=== PATIENT | male | born 1980 | race Caucasian/White ===

== ENCOUNTER 2024-05-23 08:06 | Day surgery (SDC) | payer BC, OTHER ==
[2024-05-20 14:45] VITALS: BMI 39.6
[2024-05-23] MEDS ORDERED: PROPOFOL 80 ML ONE (08:47)
[2024-05-23 09:44] VITALS: RESP 19; TEMP 97.5
[2024-05-23 09:47] VITALS: BP 120/72; PULSE 68
== END 2024-05-23 09:45 | disposition home or self-care (01) ==
LOC: FASU-ENDO 08:06
PROVIDERS: ATTEND Internal Medicine Gastroenterology
PROC: 0DJD8ZZ Inspection of Lower Intestinal Tract, Via Natural or Artificial Opening Endoscopic (ICD-10-PCS; principal; 2024-05-23 08:56)
DX: Z12.11 Encounter for screening for malignant neoplasm of colon (principal); K64.0 First degree hemorrhoids; K64.8 Other hemorrhoids; Z80.0 Family history of malignant neoplasm of digestive organs